=== PATIENT | male | born 1955 | race American Indian/Alaskan Native ===

== ENCOUNTER 2020-08-04 13:55 | Inpatient (IN) | payer OTHER ==
[~2020-08-04] VITALS: Ht 177.8 cm; Wt 102.4 kg
[~2020-08-04 13:55] MED LIST: ADALAT CC30 MG PO; ASPIRIN 81M81 MG/TA2 PO; COZAAR 25MG25 MG/TAB; COZAAR100 MG PO; FLEXERIL 1010 MG/TAB PO; LIPITOR 10MG10 MG; LIPITOR 80MG80 MG PO; NORCO 325 MG-51 TAB PO; NORVASC2.5 MG PO; PRILOSEC 20MG20 MG PO; PRILOSEC10 MG; TRICOR 48MG48 MG PO; TRICOR145 MG PO; VOLTAREN 75 DR75 MG PO; ZOFRAN ODT4 MG PO
[2020-08-04 15:20] LABS: HEMATOCRIT 39.1 % (42.0-52.0); HEMOGLOBIN 13.6 g/dl (13.5-18.0); MEAN CELL VOLUME 88 fl (80.0-100.0); MEAN CORPUSCULAR HEMOGLOBIN 31 pg (27.0-31.0); MEAN CORPUSCULAR HGB CONC 35 g/dl (33.0-37.0); MEAN PLATELET VOLUME 9.6 fl (7.4-10.4); PLATELET COUNT 376 K/mm3 (130-400); RED BLOOD COUNT 4.46 M/mm3 (4.20-5.60); REDCELL DISTRIBUTION WIDTH-CV 12.3 % (11.5-14.5)
[2020-08-04 15:36] LABS: ALANINE AMINOTRANSFERASE 222 U/L (4-49); ALBUMIN 3.9 gm/dL (3.5-5.0); ALKALINE PHOSPHATASE 229 U/L (50-136); ANION GAP 8 mmol/L (7-16); AST,SGOT 157 U/L (15-37); BILIRUBIN,TOTAL 0.9 mg/dL (0.0-1.0); BLOOD UREA NITROGEN 14 mg/dL (9-20); C-REACTIVE PROTEIN 8.7 mg/dL (0.0-0.9); CALCIUM 8.9 mg/dL (8.4-10.2); CARBON DIOXIDE 26 mmol/L (22-30); CHLORIDE 101 mmol/L (98-107); CREATININE, serum 0.91 (0.66-1.25); GLUCOSE 113 mg/dL (74-106); POTASSIUM 3.8 mmol/L (3.4-5.0); SODIUM 136 mmol/L (137-145); TOTAL PROTEIN 7.3 gm/dL (6.4-8.2)
[2020-08-04 15:50] LABS: TROPONIN-I < 0.012 ng/mL (0.000-0.035)
[2020-08-04 15:51] LABS: BAND 4 % (0-10); EOSINOPHIL 2 % (0-4); MYELOCYTE 2 % (0-0); NEUTROPHILS 58 % (42.0-75.2)
[2020-08-04 15:52] LABS: LYMPHOCYTE 25 % (20.0-51.0)
[2020-08-04 15:53] LABS: PLATELET ESTIMATE NORMAL (NORMAL)
[2020-08-04] MEDS ORDERED: FLOMAX 0.40.4 MG/CAP PO (21:19)
[2020-08-04 21:26] LABS: ARTERIAL BLD GAS O2 SATURATION 93.9 % (92-100); ARTERIAL BLD GAS TCO2 CT 22.6; ARTERIAL BLOOD GAS BASE EXCESS -2.8 (-2-2); ARTERIAL BLOOD GAS HCO3 21.5 meq/L (22-26); ARTERIAL BLOOD GAS PCO2 36.2 mmHg (35-45); ARTERIAL BLOOD GAS PO2 73.3 mmHg (80-100); ARTERIAL BLOOD GAS pH 7.39 (7.35-7.45)
[2020-08-04 22:30] LABS: COLLECTION METHOD CLEAN CATCH
[2020-08-04 22:35] LABS: PH 7 (5-8); URINE APPEARANCE Clear; URINE BILIRUBIN Negative (NEGATIVE); URINE COLOR Straw; URINE GLUCOSE Negative (NEGATIVE); URINE KETONE Negative (NEGATIVE); URINE PROTEIN(semi-quant) Negative (NEGATIVE); URINE UROBILINOGEN Negative (NEGATIVE)
[2020-08-04 22:36] LABS: URINE BLOOD Negative (NEGATIVE); URINE LEUKOCYTE ESTERASE Negative (NEGATIVE); URINE NITRATE Negative (NEGATIVE)
[2020-08-04 22:37] LABS: SQUAMOUS EPITHELIAL None Seen /hpf; URINE BACTERIA None Seen /hpf; URINE RBC 0-2 /hpf
--- NOTE | 2020-08-04 23:00 | NUR ---
Admitted to medical floor from ER with DX covid +, pneumonia. Afebrile at this time, VSS, 02 sats 92% on RA -put on 2L/nc for patient comfort. Denies pain at this time, slight dry cough- denies need for cough medicine. On Droplet/Contact Isolation. Up on own to bathroom, steady on feet. IV fluids of NS at 75cc/hr.
[2020-08-05] VITALS (7 sets, daily range): BP systolic 124–154; BP diastolic 72–90; PULSE 63–94; TEMP 97.4–98.2
[2020-08-05 00:03] LABS: INR 1.3 (0.8-3.0); PROTHROMBIN TIME 14.1 SECONDS (9.7-12.8)
[2020-08-05 00:06] LABS: PARTIAL THROMBOPLASTIN TIME 31.2 SECONDS (26.0-37.0)
--- NOTE | 2020-08-05 06:09 | NUR ---
Slept well last night- continues with NS at 75cc/hr, did have a few episodes last night when Tele called and stated pt HR dipped to 38 for just a second or two then back up to 70,s/min- Marjan aware- did get a EKG rate 70,s. continue to watch
--- NOTE | 2020-08-05 16:29 | NUR ---
Pt assessment completed and charted. Medications administered per nov. Pt A&O, indpendent in room, on 2-3L NC, breathing is even, unlabored, occasional ERNST. LS cta UL, bases coarse crackles. Pt has dry cough, requested robitussin but then stated he "didn't need any at the moment", was resting in bed. IVF at 75ml/hr this morning, dc'd and IV to INT. Discussed FR w/ Dr. Trujillo, order dc'd. Pt denies chest pain, dizziness, SOB, N/V/D. HRRR. Pulses strong bilaterally, no edema noted. BS active. Inf. disease consult made. No further needs at this time. Pt resting off and on throughout day. All questions answered.
--- NOTE | 2020-08-05 18:06 | NUR ---
Pt resting in bed, bag of belongings delivered. Pt VSS, afebrile, denies need for anything for cough. IVF stopped. No further needs at this time.
--- NOTE | 2020-08-05 20:00 | NUR ---
Initial shift assessment done- denies pain/SOB at this time, respiratory therapy did remove o2- pt on room air with sats 94%. Tele on. Afebrile. Denies any stools today. LLL diminished to auscultation, dry cough. States feeling better-
[2020-08-06 01:08] VITALS: BP 128/70; PULSE 67; TEMP 97.7
[2020-08-06 03:47] VITALS: BP 118/58; PULSE 60; TEMP 97.9
[2020-08-06 05:23] LABS: CALCIUM 8.7 mg/dL (8.4-10.2); CREATININE, serum 0.84 (0.66-1.25); POTASSIUM 4.1 mmol/L (3.4-5.0)
--- NOTE | 2020-08-06 06:06 | NUR ---
Did sleep fairly well last night-- did the same with heart rate as the previous night- would donald down to the mid 30,s for just a second or two then back up to 70,s,,, did this around 4-5 times during the night- always sound asleep. No requests this morning=resting quietly
[2020-08-06 07:55] VITALS: BP 138/78; PULSE 63; TEMP 98
--- NOTE | 2020-08-06 08:16 | NUR ---
pt assessment completed and charted. medications administered per nov. Pt A&O, independent in room, on room air, breathing is even and unlabored. Pt denies SOB at this time, states he slept well. pt denies pain at this time. Pt satting mid to low 90s on room air, was put on room air w/ nightshift. UL lungs CTA, bases coarse crackles. BS active. HRRR, occasionally donald, pt asymptomatic. Pulses strong bilaterally. No edema noted. Pt does have dry cough, denies need for cough medicine at this time. No further needs. Call light within reach.
[2020-08-06 08:31] LABS: HEMOGLOBIN 12.1 g/dl (13.5-18.0); MEAN CELL VOLUME 89 fl (80.0-100.0); MEAN CORPUSCULAR HEMOGLOBIN 31 pg (27.0-31.0); MEAN CORPUSCULAR HGB CONC 34 g/dl (33.0-37.0); MEAN PLATELET VOLUME 9.6 fl (7.4-10.4); PLATELET COUNT 449 K/mm3 (130-400); RED BLOOD COUNT 3.96 M/mm3 (4.20-5.60); REDCELL DISTRIBUTION WIDTH-CV 12.5 % (11.5-14.5)
[2020-08-06 08:47] LABS: HEMATOCRIT 35.2 % (42.0-52.0)
[2020-08-06 09:07] LABS: BAND 9 % (0-10); LYMPHOCYTE 20 % (20.0-51.0); NEUTROPHILS 69 % (42.0-75.2); PLATELET ESTIMATE INCREASED (NORMAL)
[2020-08-06 12:59] VITALS: BP 140/80; PULSE 65; TEMP 97.5
--- NOTE | 2020-08-06 13:38 | NUR ---
Pt doing well, lunch delivered. Pt sitting in bed, no needs expressed. Pt on room air, breathing is even and unlabored. Pt denies SOB, completed ex ox, did well on room air. No further needs at this time.
[2020-08-06 16:44] VITALS: BP 162/96; PULSE 79; TEMP 97.8
[2020-08-06 20:19] VITALS: BP 162/84; PULSE 69; TEMP 97.6
--- NOTE | 2020-08-06 20:28 | NUR ---
Initial shift assessment done- denies pain, denies SOB,has dry cough, cough medicine given- up as tolerated in room, getting antibiotics Rochephin IV and doxycycline p.o . Given HS snack- no other requests.
[2020-08-07 00:32] VITALS: BP 134/72; PULSE 59; TEMP 99
[2020-08-07 04:38] VITALS: BP 160/92; PULSE 61; TEMP 99.1
--- NOTE | 2020-08-07 06:00 | NUR ---
Slept fair throughout the night- did continue with episodes of sinus bradycardia during sleep, HR 40,s. Temp 99.1
[2020-08-07 06:38] LABS: HEMOGLOBIN 12.2 g/dl (13.5-18.0); MEAN CELL VOLUME 89 fl (80.0-100.0); MEAN CORPUSCULAR HEMOGLOBIN 30 pg (27.0-31.0); MEAN CORPUSCULAR HGB CONC 34 g/dl (33.0-37.0); MEAN PLATELET VOLUME 9.6 fl (7.4-10.4); PLATELET COUNT 503 K/mm3 (130-400); RED BLOOD COUNT 4.08 M/mm3 (4.20-5.60); REDCELL DISTRIBUTION WIDTH-CV 12.4 % (11.5-14.5)
[2020-08-07 06:42] LABS: HEMATOCRIT 36.1 % (42.0-52.0)
[2020-08-07 06:47] LABS: CALCIUM 8.8 mg/dL (8.4-10.2); CREATININE, serum 0.85 (0.66-1.25); POTASSIUM 3.7 mmol/L (3.4-5.0)
[2020-08-07 07:09] LABS: ALBUMIN 3.4 gm/dL (3.5-5.0); BILIRUBIN UNCONJUGATED 0.1 mg/dL (0.0-1.1); BILIRUBIN,DIRECT 0.2 mg/dL (0.0-0.4); BILIRUBIN,TOTAL 0.3 mg/dL (0.0-1.0); TOTAL PROTEIN 6.5 gm/dL (6.4-8.2)
[2020-08-07 07:34] LABS: BAND 5 % (0-10); EOSINOPHIL 1 % (0-4); LYMPHOCYTE 18 % (20.0-51.0); NEUTROPHILS 67 % (42.0-75.2)
[2020-08-07 07:35] LABS: HYPOCHROMIA 1+; PLATELET ESTIMATE INCREASED (NORMAL)
[2020-08-07 09:00] VITALS: BP 140/82; PULSE 64; TEMP 98.9
--- NOTE | 2020-08-07 09:27 | NUR ---
Patient A/O x4. Patient up in the chair and watching TV. Denies any pain or discomfort. Two cups of ice water provided per patient request. Non productive occasional dry cough noted. Jayde romero IV site has no s/s of complications. Scheduled morning meds given per order. Eating breakfast now. No any other needs expressed.
--- NOTE | 2020-08-07 10:13 | NUR ---
Cares being provided by [facility]ENG [facility] orientee. No issues or complaints expressed by patient. VSS. pt to discharge this afternoon.
[2020-08-07] MEDS ORDERED: OMNICEF 300MG300 MG PO (11:29)
[2020-08-07] MEDS ORDERED: MONODOX100 PO (11:29)
[2020-08-07] MEDS ORDERED: DECADRON6 MG PO (11:31)
--- NOTE | 2020-08-07 12:31 | NUR ---
D/C order received from MD. Left hand IV removed and covered with band-aid. D/C instructions and education provided. Patient verbalized understanding. Staff escorted patient with wheel chair to the parking lot. Care transferred to patient's spouse.
--- NOTE | 2020-08-07 12:47 | NUR ---
Stunt Man attempted to contact patient by his personal cell phone and by room phone. Patient did not answer either. SW contacted patient's , Little (ph#[phone]) to complete intake. Patient lives in [place] with Little and goes to [facility] for primary care. Patient normally obtains medications from [facility], however would like to use [facility] for the time being as both patient and his are on quarantine. Patient does not use any DME and is independent with ADLS. FLORA collaborated with RNCora who advised patient has been independent in his room. Little advised patient has DPOA-HC which designates her. Patient will return home today with his , Little. No additional needs at this time.
== END 2020-08-07 12:15 | disposition home or self-care (01) | DRG 177 ==
LOC: COL.ER 13:55 → PEDS 20:55 → MEDICAL 23:11
PROVIDERS: Nurse Practitioner Family; Physician Assistant; ADMIT Student in an Organized Health Care Education/Training Program
DX: U07.1 COVID-19 (principal); J12.89 Other viral pneumonia; J96.01 Acute respiratory failure with hypoxia; R19.7 Diarrhea, unspecified; K76.0 Fatty (change of) liver, not elsewhere classified; R00.1 Bradycardia, unspecified; I10 Essential (primary) hypertension; E78.5 Hyperlipidemia, unspecified; K21.9 Gastro-esophageal reflux disease without esophagitis; N40.0 Benign prostatic hyperplasia without lower urinary tract symptoms; R74.01 Elevation of levels of liver transaminase levels; R63.4 Abnormal weight loss; Z88.0 Allergy status to penicillin
CPT/HCPCS: 99223-AI; 99232-AI; 99233-AI; 99239; J0696; J1100; J1650; J2405; J7030

== ENCOUNTER → 2020-10-12 | Outpatient (CLI) | payer OTHER ==
[2020-10-12] VITALS (10 sets, daily range): BP systolic 121–158; BP diastolic 79–99; PULSE 63–88
[~2020-10-12] VITALS: Ht 177.8 cm; Wt 104.0 kg
[~2020-10-12] MED LIST changes: +DECADRON6 MG PO; +FLOMAX 0.40.4 MG/CAP PO; +MONODOX100 PO; +OMNICEF 300MG300 MG PO
[2020-10-12 07:54] LABS: PROTHROMBIN TIME 11.4 SECONDS (9.7-12.8)
--- NOTE | 2020-10-12 08:15 | NUR ---
PT BROUGHT OVER AMBULATORY TO CT ROOM. PLACED INTO POSITION ON TABLE. MONITORING EQUIPMENT PLACED. MONITORING BEGUN
--- NOTE | 2020-10-12 10:01 | NUR ---
PT STATES DISCOMFORT IS 2/10. GIVEN OJ AND MUFIN
== END ==
LOC: COL.RAD 10-10 12:30
DX: K76.0 Fatty (change of) liver, not elsewhere classified (principal)

== ENCOUNTER 2021-08-24 07:22 | Day surgery (SDC) | payer OTHER, MEDICARE ==
[~2021-08-24] VITALS: Ht 177.8 cm; Wt 109.6 kg
--- NOTE | 2021-08-24 07:34 | NUR ---
66 year old patient admitted to bay #5 via ambulation. Patient is alert and oriented x3. First and last name + verified with patient and confirmed with ID band. Consent reviewed and signed. Patient verbalized understanding of procedure. Vitals obtained. Patient voided prior to changing into a clean gown. Warm blanket provided. Non-slip socks are on. IV started in R wrist on first attempt with #22. LR is infusing without difficulty. Call best is within reach. SEE PHYSICAL ASSESSMENT.
[2021-08-24 08:05] VITALS: BP 137/92; PULSE 77; TEMP 98
[2021-08-24 09:15] VITALS: BP 135/87; PULSE 86; TEMP 98
--- NOTE | 2021-08-24 09:15 | NUR ---
Pt returned via cart to recliner in [facility]. A&O. VSS-see flowsheet. Pt given food and drink per request. Denies needs or complaints.
[2021-08-24 09:30] VITALS: BP 134/102; PULSE 82
[2021-08-24 09:45] VITALS: BP 136/81; PULSE 79
--- NOTE | 2021-08-24 10:10 | NUR ---
Pts tolerated oral intake. IV removed and pressure dressing applied. Pt dressed independently. Dr Villalobos in to visit post procedure. VS remain stable. Discharge teaching completed, pt verbalized understanding. Staff ambulated with pt to private vehicle for dc home with to drive.
== END 2021-08-24 10:10 | disposition home or self-care (01) ==
LOC: SDCO 07:22
DX: K22.9 Disease of esophagus, unspecified (principal); K22.10 Ulcer of esophagus without bleeding; K21.9 Gastro-esophageal reflux disease without esophagitis; R94.5 Abnormal results of liver function studies; K75.81 Nonalcoholic steatohepatitis (NASH); M54.9 Dorsalgia, unspecified; I10 Essential (primary) hypertension; E78.5 Hyperlipidemia, unspecified; Z79.891 Long term (current) use of opiate analgesic; Z86.16 Personal history of COVID-19; Z79.899 Other long term (current) drug therapy
CPT/HCPCS: C1726; J2704; J7120

== ENCOUNTER 2023-09-10 16:25 | Outpatient (RCR) | payer MEDICARE, OTHER ==
[~2023-09-10 16:25] MED LIST changes: +BENICAR40 MG PO; +BRILINTA90 MG PO; +COREG 3.123.125 MG/T PO; +COREG 6.256.25 MG/TA PO; +HCTZ12.5TAB PO; +IMDUR 60MG60 MG/TAB PO; +LIPITOR 40MG TA40 MG PO; +NITROSTAT0.4 MG/TAB SL; +NORVASC 10MG10 MG PO; +NORVASC 5MG5 MG/TAB PO; +REQUIP0.25 MG PO
== END 2023-09-14 | disposition home or self-care (01) ==
LOC: COL.CR
DX: Z48.812 Encounter for surgical aftercare following surgery on the circulatory system (principal); Z95.5 Presence of coronary angioplasty implant and graft

== ENCOUNTER → 2023-09-18 | Outpatient (CLI) | payer OTHER | LOC: COL.RAD 06:54 | DX: M48.56XA Collapsed vertebra, not elsewhere classified, lumbar region, initial encounter for fracture (principal); K21.9 Gastro-esophageal reflux disease without esophagitis; R19.7 Diarrhea, unspecified; K75.81 Nonalcoholic steatohepatitis (NASH) | CPT/HCPCS: A9541-JZ ==

== ENCOUNTER → 2023-10-15 | Outpatient (RCR) | payer MEDICARE, OTHER | END | disposition home or self-care (01) | LOC: COL.CR | DX: Z48.812 Encounter for surgical aftercare following surgery on the circulatory system (principal); Z95.5 Presence of coronary angioplasty implant and graft ==

== ENCOUNTER 2023-10-27 15:00 | Outpatient (RCR) | payer MEDICARE, OTHER | END 2023-11-13 | disposition home or self-care (01) | LOC: COL.CR | DX: Z48.812 Encounter for surgical aftercare following surgery on the circulatory system (principal); Z95.5 Presence of coronary angioplasty implant and graft ==

== ENCOUNTER 2024-04-25 13:33 | Emergency (ER) | payer MEDICARE, OTHER ==
[~2024-04-25] VITALS: Ht 177.8 cm; Wt 94.5 kg
[2024-04-25 13:39] VITALS: TEMP 97.7
[2024-04-25] MEDS ORDERED: Morphine 4 MG/ML VIAL IV ONE (14:15)
[2024-04-25] MEDS ORDERED: Ondansetron 4 MG/2 ML VIAL IV ONE (14:15)
[2024-04-25 14:18] LABS: BASO # 0.1 K/mm3 (0.0-0.2); BASO % 1.1 % (0.0-2.0); EOS # 0.2 K/mm3 (0.0-0.7); EOS % 2.9 % (0.0-4.0); GRAN # 3.5 K/mm3 (1.4-6.5); GRAN % 46.9 % (42.2-75.2); HEMOGLOBIN 15.9 g/dl (13.5-18.0); LYMPH # 2.8 K/mm3 (1.2-3.4); LYMPH % 37.9 % (20.0-51.0); MEAN CELL VOLUME 89 fl (80.0-100.0); MEAN CORPUSCULAR HEMOGLOBIN 31 pg (27-31); MEAN CORPUSCULAR HGB CONC 35 g/dl (33.0-37.0); MEAN PLATELET VOLUME 9.6 fl (7.4-10.4); MONO # 0.8 K/mm3 (0.1-0.6); MONO % 10.9 % (1.7-9.3); PLATELET COUNT 205 K/mm3 (130-400); RED BLOOD COUNT 5.18 M/mm3 (4.20-5.60); REDCELL DISTRIBUTION WIDTH-CV 12.2 % (11.5-14.5)
[2024-04-25] MEDS ORDERED: Nitroglycerin 2% Topical Oint 1 GM UD TD ONE (14:30)
[2024-04-25 14:35] LABS: ALANINE AMINOTRANSFERASE 31 U/L (0-55); ALBUMIN 3.8 g/dL (3.4-4.8); ALKALINE PHOSPHATASE 136 U/L (40-150); ANION GAP 10 mmol/L (7-16); AST,SGOT 25 U/L (5-34); BILIRUBIN,TOTAL 0.4 mg/dL (0.2-1.2); BLOOD UREA NITROGEN 12 mg/dL (8-26); CALCIUM 9.4 mg/dL (8.4-10.2); CHLORIDE 107 mEq/L (98-107); CREATININE, serum 0.85 mg/dL (0.72-1.25); GLUCOSE 103 mg/dL (70-99); SODIUM 138 mEq/L (136-145); TOTAL PROTEIN 6.9 g/dl (6.2-8.1)
[2024-04-25 14:48] LABS: TROPONIN-I < 0.010 ng/mL (0.00-0.033)
[2024-04-25 15:47] VITALS: BP 143/98; PULSE 82
[2024-04-25] MEDS ORDERED: LORazepam 2 MG/ML 1 ML VIAL IV PRN (16:00)
== END 2024-04-25 15:50 | disposition home or self-care (01) ==
LOC: COL.ER 13:33
PROVIDERS: Personal Emergency Response Attendant
DX: R07.89 Other chest pain (principal)

== ENCOUNTER → 2024-07-08 | Outpatient (CLI) | payer OTHER ==
[~2024-07-08] MED LIST changes: +Iohexol 300 - 10 ML VIAL ONE; +MOUNJARO5 MG/0.5 M SQ; +PEPCID 20MG TAB20 MG PO; +PREDNISONE20 MG PO; +PROBIOTIC-10 370 MG PO; +VITAMIN D31000 I1 PO
== END ==
LOC: MHCPAIN 14:29
DX: M46.1 Sacroiliitis, not elsewhere classified (principal); M54.50 Low back pain, unspecified
CPT/HCPCS: G0260; J0665; J1010; Q9967